=== PATIENT | male | born 1955 | race Caucasian/White ===

== ENCOUNTER 2017-04-30 10:14 | Emergency (ER) ==
[2017-04-30 10:22] VITALS: BP 197/123; TEMP 99.4; BMI 40.1
[2017-04-30] MEDS ORDERED: ZESTRIL PO STA ×2 (10:31→11:35)
[2017-04-30 10:47] LABS: BASOPHILS # (AUTO) 0.1 K/uL (0-0.2); BASOPHILS % (AUTO) 1.1 % (0.0-3.0); EOSINOPHILS # (AUTO) 0.3 K/ul (0.0-0.7); EOSINOPHILS % (AUTO) 4.4 % (0.0-7.0); HEMATOCRIT 45.3 % (42.0-52.0); HEMOGLOBIN 16.1 g/dl (14.0-18.0); IMMATURE GRANULOCYTE % (AUTO) 0.3 % (0.0-5.0); LYMPHOCYTES % (AUTO) 29.9 (10.0-50.0); MEAN CORPUSCULAR HGB CONC 35.5 (31.8-35.4); MEAN CORPUSCULAR VOLUME 98.5 fl (80.0-94.0); MONOCYTES # (AUTO) 0.5 K/uL (0.4-2.0); MONOCYTES % (AUTO) 8.1 (0-10); NEUTROPHILS # (AUTO) 3.7 K/ul (2.0-6.9); NEUTROPHILS % (AUTO) 56.2; PLATELET COUNT 212 10^3/uL (140-440); WHITE BLOOD COUNT 6.55 K/ul (4.2-10.2)
[2017-04-30 11:34] LABS: ALANINE AMINOTRANSFERASE 27 U/L (12-78); ALBUMIN 4.2 g/dL (3.4-5.0); ALKALINE PHOSPHATASE 72 U/L (56-119); ANION GAP 14.8; ASPARTATE AMINO TRANSFERASE 25 U/L (15-37); BILIRUBIN,TOTAL 0.71 mg/dL (0.00-1.20); BLOOD UREA NITROGEN 12 mg/dL (7-18); BUN/CREATININE RATIO 14.63; CALCIUM 9.7 mg/dL (8.2-10.2); CARBON DIOXIDE 29 mmol/L (23-31); CHLORIDE 102 mmol/L (98-107); CHOLESTEROL 239 mg/dL (0-200); CREATINE KINASE 76 U/L; CREATININE 0.82 mg/dL (0.60-1.10); GLUCOSE 148 mg/dL (82-115); POTASSIUM 3.8 mmol/L (3.5-5.1); SODIUM 142 mmol/L (136-145)
[2017-04-30 11:44] LABS: BILIRUBIN,URINE Negative (NEGATIVE); KETONES,URINE Negative (NEGATIVE); LEUKOCYTE ESTERASE ,URINE Negative (NEGATIVE); NITRITE,URINE Negative (NEGATIVE); PH,URINE 7.5 (5-9); PROTEIN,URINE Negative (NEGATIVE); URINE, BLOOD Negative (NEGATIVE)
--- NOTE | 2017-04-30 11:51 | CT ---
EXAM: CT THORAX HISTORY: Cough. TECHNIQUE: CT thorax without intravenous contrast. 5-mm axial sections. Coronal and sagittal re-fo rmations. COMPARISON: None FINDINGS: Heart size is within normal limits. There is no pericardial effusion. Atherosclerotic disease is n oted. No mediastinal or hilar lymphadenopathy. In the posteriomedial aspect of the left lower lobe there is a 0.52 cm [address] noncalcified pl eural based nodule. In the left costophrenic angle, there is an indeterminate noncalcified 0.58-cm nodule. Lungs are otherwise clear. No acute infiltrates or consolidations. There is no pleural fl uid or vascular congestion. The bones reveal no acute abnormality. IMPRESSION: 1. No acute infiltrate or pneumonia. 2. There are two tiny left-sided nodules which may represent postinflammatory foci. Consider follo w-up CT thorax in approximately 4-6 months to assure stability.
[2017-04-30 11:53] LABS: ADD URINE MICROSCOPIC YES
--- NOTE | 2017-04-30 12:27 | ED.PDOC ---
General ED Provider: Dr. IMELDA KIM Chief Complaint: Hypertension Stated Complaint: hypertension Time Seen by Physician: 10:15 Mode of Arrival: Walk-In Information Source: Patient Exam Limitations: No limitations Nursing and Triage Documentation Reviewed and Agree: Yes Cardiovascular Complaint Exam - Hypertension Complaint/Exam Onset/Duration: today Symptoms Are: Still present Timing: Constant Reported B/P Prior to Arrival: 190 Aggravating: Reports: None Alleviating: Reports: None Associated Signs and Symptoms: Denies: Chest pain, Vision changes, Anxiety, Recent stress, Headache, Numbness, Tingling, Weakness, Dizziness, Short of air, Swelling Related History: Reports: Similar episode Related Surgical History: Reports: None Cardiac Risk Factors: Reports: Hypertension, Smoking, Family history Recent Change in Medications: No A/V [place]: No Papilledema Present: No JVD Present: No Carotid Bruit Present: No Femoral Pulses Bounding: No Differential Diagnoses: Hypertension Quality Indicator For Non-Traumatic Chest Pain/Syncope: EKG Performed Review of Systems - Review Of Systems Constitutional: Reports: No symptoms Eyes: Reports: No symptoms Ears, Nose, Mouth, Throat: Reports: No symptoms Respiratory: Reports: No symptoms Cardiac: Reports: No symptoms GI: Reports: No symptoms : Reports: No symptoms Musculoskeletal: Reports: No symptoms Skin: Reports: No symptoms Neurological: Reports: No symptoms Endocrine: Reports: No symptoms Hematologic/Lymphatic: Reports: No symptoms All Other Systems: Reviewed and Negative Past Medical History - Past Medical History Previously Healthy: Yes Endocrine: Reports: None Cardiovascular: Reports: Hypertension Respiratory: Reports: None Hematological: Reports: None Gastrointestinal: Reports: None Genitourinary: Reports: None Neuro/Psych: Reports: None Musculoskeletal: Reports: None Cancer: Reports: None - Surgical History General Surgical History: Reports: None - Family History Family History: Reports: None - Social History Smoking Status: Current some day smoker Hx Substance Use: No Alcohol Screening: Occasionally - Immunizations Tetanus Shot up to Date: Yes Physical Exam - Physical Exam Appearance: Well-appearing, No pain distress, Well-nourished Eyes: ADELSO, EOMI, Conjunctiva clear ENT: Ears normal, Nose normal, Oropharynx normal Respiratory: Airway patent, Breath sounds clear, Breath sounds equal, Respirations nonlabored Cardiovascular: RRR, Pulses normal, No rub, No murmur GI/: Soft, Nontender, No masses, Bowel sounds normal, No Organomegaly Musculoskeletal: Normal strength, ROM intact, No edema, No calf tenderness Skin: Warm, Dry, Normal color Neurological: Sensation intact, Motor intact, Reflexes intact, Cranial nerves intact, Alert, Oriented Psychiatric: Affect appropriate, Mood appropriate Interpretation - Radiology Interpretation Radiology Interpretation By: Radiologist Radiology Results: No acute changes - Head Of Precision Targeting Rate: Normal Rhythm: Sinus - EKG Interpretation Rate: Normal Rhythm: Sinus ([facility]) Critical Care Note - Critical Care Note Total Time (mins): 0 Course - Course Hematology/Chemistry: 04/30/17 10:35 04/30/17 10:35 Orders, Labs, Meds: Lab Review 04/30/17 04/30/17 10:35 11:35 WBC 6.55 RBC 4.60 L Hgb 16.1 Hct 45.3 MCV 98.5 H MCH 35.0 H MCHC 35.5 H RDW Coeff of [place] 12.6 Plt Count 212 Immature Gran % (Auto) 0.3 Neut % (Auto) 56.2 Lymph % (Auto) 29.9 [place] % (Auto) 8.1 Eos % (Auto) 4.4 Baso % (Auto) 1.1 Immature Gran # (Auto) 0.0 Neut # 3.7 Lymph # 2.0 [place] # 0.5 Eos # 0.3 Baso # 0.1 Sodium 142 Potassium 3.8 Chloride 102 Carbon Dioxide 29 Anion Gap 14.8 BUN 12 Creatinine 0.82 Estimated GFR (MDRD) 96.00 BUN/Creatinine Ratio 14.63 Glucose 148 H Calcium 9.7 Total Bilirubin 0.71 AST 25 ALT 27 Alkaline Phosphatase 72 Total Creatine Kinase 76 Troponin I < 0.0100 Total Protein 7.0 Albumin 4.2 Globulin 2.8 Albumin/Globulin Ratio 1.50 Cholesterol 239 H TSH 1.509 Free T4 1.01 Urine Color Yellow Urine Clarity Cloudy Urine pH 7.5 Ur Specific [place] 1.020 Urine Protein Negative Urine Glucose (UA) Negative Urine Ketones Negative Urine Blood Negative Urine Nitrite Negative Urine Bilirubin Negative Urine Urobilinogen 0.2 Ur Leukocyte Esterase Negative Urine Microscopic WBC 0-2 Ur Squamous Epith Cells Not present Amorphous Sediment 3+ Orders Category Date Time Status EKG-(ED ONLY) Stat CARDIO 04/30/17 10:30 Completed CBC W/ AUTO DIFF Stat LAB 04/30/17 10:35 Completed CHOLESTEROL Stat LAB 04/30/17 10:35 Completed COMPREHENSIVE METABOLIC PANEL Stat LAB 04/30/17 10:35 Completed CREATINE KINASE Stat LAB 04/30/17 10:35 Completed FREE T4 (FREE THYROXINE) Stat LAB 04/30/17 10:35 Completed THYROID STIMULATING HORMONE Stat LAB 04/30/17 10:35 Completed TROPONIN I Stat LAB 04/30/17 10:35 Completed UA [URINALYSIS C & S IF INDICATED] Stat LAB 04/30/17 11:35 Completed Lisinopril [Zestril] MEDS 04/30/17 10:31 Discontinued 20 mg PO ONCE STA Lisinopril [Zestril] MEDS 04/30/17 11:35 Discontinued 20 mg PO ONCE STA CT CHEST W/O CONTRAST Stat RADS 04/30/17 10:29 Completed Medications Discontinued Medications Generic Name Dose Route Start Last Admin Trade Name Freq PRN Reason Stop Dose Admin Lisinopril 20 mg 04/30/17 10:31 04/30/17 10:35 Zestril PO 04/30/17 10:32 20 mg ONCE STA Administration Lisinopril 20 mg 04/30/17 11:35 04/30/17 11:42 Zestril PO 04/30/17 11:36 20 mg ONCE STA Administration Vital Signs: Temp Pulse Resp BP Pulse Ox 04/30/17 10:15 99.4 F 93 H 15 197/123 H 96 CALE Risk Score CALE Risk Score: Risk Score Odds of by 30D 0 0.1 (0.1-0.2) 1 0.3 (0.2-0.3) 2 0.4 (0.3-0.5) 3 0.7 (0.6-0.9) 4 1.2 (1.0-1.5) 5 2.2 (1.9-2.6) 6 3.0 (2.5-3.6) 7 4.8 (3.8-6.1) Departure - Departure Time of Disposition: 12:27 Disposition: HOME SELF-CARE Discharge Problem: Hypertension Qualifiers: Hypertension type: essential hypertension Qualifier Code: (I10) Essential ( primary) hypertension Instructions: Hypertension (ED) Condition: Good Pt referred to PMD for follow-up: No Additional Instructions: Please call your Family Physician as soon as possible to schedule a follow-up appointment. Allergies/Adverse Reactions: Allergies No Known Allergies Allergy (Unverified 04/30/17 10:24) Home Medications: Ambulatory Orders 1 [No Reported Medications] 04/30/17 Disposition Discussed With: Patient
== END 2017-04-30 12:40 | disposition home or self-care (01) ==
LOC: ED 10:14
DX: I10 Essential (primary) hypertension (principal); F17.210 Nicotine dependence, cigarettes, uncomplicated
CPT/HCPCS: 36415; 80053; 81001; 82465; 82550; 84439; 84443; 84484; 85025; 93005; 93010; 99283

== ENCOUNTER 2017-05-10 12:50 | Outpatient (CLI) ==
[2017-05-10 13:26] LABS: CHOL/HDL RATIO 4.5 (4.5-6.4)
[2017-05-12 12:01] LABS: C-PEPTIDE 16.4 ng/mL (1.1-4.4); INSULIN 150.6 uIU/mL (2.6-24.9)
== END 2017-05-10 12:51 | disposition home or self-care (01) ==
LOC: RAD 12:50 → LAB 12:51
PROVIDERS: ATTEND General Practice
DX: I10 Essential (primary) hypertension (principal); R63.8 Other symptoms and signs concerning food and fluid intake; R73.9 Hyperglycemia, unspecified; Z12.5 Encounter for screening for malignant neoplasm of prostate
CPT/HCPCS: 36415; 80061; 83525; 84681

== ENCOUNTER 2017-05-20 12:06 | Outpatient (CLI) ==
[2017-05-20 13:26] LABS: ALBUMIN 4.1 g/dL (3.4-5.0); ANION GAP 15.6; CALCIUM 9.5 mg/dL (8.2-10.2); CREATININE 0.75 mg/dL (0.60-1.10); PHOSPHORUS 3.2 mg/dL (2.3-3.7); POTASSIUM 3.6 mmol/L (3.5-5.1)
[2017-05-20 13:31] LABS: OCCULT BLOOD INTERNAL QC 1 INTERNAL QC VALID; OCCULT BLOOD INTERNAL QC 2 INTERNAL QC VALID; OCCULT BLOOD INTERNAL QC 3 INTERNAL QC VALID; OCCULT BLOOD SAMPLE 1 NEGATIVE (NEGATIVE); OCCULT BLOOD SAMPLE 2 NO SPECIMEN RECEIVED (NEGATIVE); OCCULT BLOOD SAMPLE 3 NO SPECIMEN RECEIVED (NEGATIVE)
== END 2017-05-20 12:07 | disposition home or self-care (01) ==
LOC: LAB 12:06
PROVIDERS: ATTEND General Practice
DX: E78.5 Hyperlipidemia, unspecified (principal); I10 Essential (primary) hypertension; R73.9 Hyperglycemia, unspecified; R10.9 Unspecified abdominal pain; Z12.11 Encounter for screening for malignant neoplasm of colon
CPT/HCPCS: 36415; 80069; 82272; 83036

== ENCOUNTER 2019-03-06 06:17 | Outpatient (CLI) ==
--- NOTE | 2019-03-06 08:44 | STRESSECHO ---
Date of Test:03/06/19 Ordering Physician: DR. KELSEA LIZARRAGA Occupation: HOME Reason for Exam: SYNCOPE, HTN, FAMILY HX Smoking History: 39 YRS SMOKER Height : 70" Weight: 267 LBS Current Medications: AMLODIPINE, HCTZ, LISINOPRIL, LUMIGAN DROPS Resting EKG: SINUS RHYTHM/ LEFT VENTRICULAR HYPERTROPHY Target Heart Rate: 134/158 S-T SEGMENT STAGE MPH/GRADE HEART RATE BPM BLOOD PRESSURE MMHG RHYTHM +/- ELEVATION DEPRESSION SYMPTOMS AT REST 62 BPM 132/68 MMHG SR X NONE 1 1.7/10% 2 2.5/12% 3 3.4/14% 4 4.2/16% 5 5.0/18% Immediately After 146 BPM 210/100 MMHG SR X SHORT OF AIR Minutes Post Exercise 5:00 88 BPM 160/92 MMHG SR X NONE Minutes Post Exercise DURATION OF EXERCISE: 2:15 MAXIMUM HEART RATE REACHED: 146 BPM REASON FOR TERMINATION: SHORT OF AIR 95% OXYGEN SATURATION WITH EXERCISE ON ROOM AIR INTERPRETATION: 1. TEST POSITIVE FOR ISCHEMIC ST-T WAVE CHANGES 2. NO CHEST PAIN OR DISCOMFORT 3. PVC'S WITH COUPLETS NOTED WITH EXERCISE 4. BLOOD PRESSURE RESPONSE: HYPERTENSION WITH EXERCISE LEFT VENTRICULAR CONTRACTILITY NORMAL--RESTING AND POST EXERCISE MTDD
--- NOTE | 2019-03-06 08:47 | ECHOSTRESS ---
Date of Exam: 03/06/19 Ordering Physician: DR. KELSEA LIZARRAGA Reason for Echo: SOB, HTN, STRESS TEST--POSITIVE FOR ISCHEMIA M-Mode Normal Adult Results LV Dimensions Normal Adult Results AoV Opening excursions >1.6 LVEDD-base- 3.5-5.8 Ao root dimensions 2.0-3.7 LVESD-base- 3.1-4.6 L. Atrium dimensions 1.9-3.8 Post. Wall thickness 0.8-1.1 IV septum (thickness) 0.7-1.2 Post. Wall excursion 0.72-1.3 Septal motion Systolic motion R. Ventricular cavity 1.5-2.0 LVEF 60% Paradoxical septal wall motion 2-D: NORMAL LEFT VENTRICULAR CONTRACTILITY--RESTING AND POST EXERCISE M-MODE: MV: AV: TV: PV: CHAMBER SIZE: WALL MOTION: NORMAL LEFT VENTRICULAR CONTRACTILITY--RESTING AND POST EXERCISE PERICARDIUM: INTERPRETATION: 1. NORMAL LEFT VENTRICULAR CONTRACTILITY--RESTING AND POST EXERCISE MTDD
--- NOTE | 2019-03-06 09:10 | US ---
EXAM: Bilateral carotid artery Doppler History: Syncope and collapse. Technique: Multiple sonographic images through the bilateral internal carotid arteries were obtained . Color duplex Doppler was used to interrogate vascular flow. Findings: The right ICA peak systolic velocity is within normal limits measuring 68 cm/sec. The right ICA/cca PSV ratio is normal at 1.0. The right vertebral artery is patent and demonstrates antegrade flow. G ray scale images demonstrate mild plaque buildup within the right internal carotid artery. The left ICA peak systolic velocities within normal limits measuring 64 cm/sec. The left ICA/cca PSV ratio is normal at 1.1. The left vertebral artery is patent and demonstrates antegrade flow. Camacho scale images demonstrate mild plaque buildup within the left internal carotid artery. Impression: No significant hemodynamic stenosis of the bilateral internal carotid arteries
== END 2019-03-06 06:18 | disposition home or self-care (01) ==
LOC: CAR 06:17
PROVIDERS: ATTEND General Practice
DX: R55 Syncope and collapse (principal); I10 Essential (primary) hypertension